=== PATIENT | female | born 1965 | race Caucasian/White ===

== ENCOUNTER 2016-12-11 01:57 | Emergency (ER) | payer OTHER ==
[2016-12-11 02:46] VITALS: BP 114/84
== END 2016-12-11 02:46 | disposition home or self-care (01) ==
LOC: ED 01:57
DX: I47.1 Supraventricular tachycardia (principal)

== ENCOUNTER 2017-02-20 19:26 | Emergency (ER) | payer OTHER ==
[~2017-02-20] VITALS: Ht 177.8 cm; Wt 88.9 kg
[2017-02-20 19:31] VITALS: Ht 177.8 cm; Wt 88.9 kg
[2017-02-20 20:34] LABS: BASOPHIL % 0.3 % (0-2); CALCIUM 8.6 mg/dL (8.5-10.1); CARBON DIOXIDE 23.4 mmol/L (21-32); CHLORIDE SERUM 105 mmol/L (98-107); CREATININE SERUM 0.8 mg/dL (0.6-1.0); GFR1 > 60 mL/min; GLUCOSE SERUM 125 mg/dL (74-106); PLATELET COUNT 203 x10^3mcL (130-400); RED CELL DISTRIBUTION WIDTH 12.6 % (11.5-14.5); SODIUM SERUM 140 mmol/L (136-145)
[2017-02-20 20:38] LABS: ALBUMIN 3.4 g/dL (3.4-5.0); ALKALINE PHOSPHATASE 57 U/L (46-116); ALT/SGPT 46 U/L (14-59); AST/SGOT 53 U/L (15-37); BILIRUBIN TOTAL 0.16 mg/dL (0.20-1.00); MAGNESIUM 1.6 mg/dL (1.8-2.4); TOTAL PROTEIN, SERUM 7.2 g/dL (6.4-8.2)
[2017-02-20 20:48] LABS: T3 TOTAL 1.2 ng/mL
[2017-02-20 21:07] LABS: FREE T4 0.9 ng/dL (0.76-1.46); FREE THYROXINE INDEX 3.1 ug/dL (1.4-4.5); T4(THYROXINE) 8.8 ug/dL (4.7-13.3)
[2017-02-20 21:22] LABS: AMPHETAMINE QUAL UR NONE DETECTED (NEG <=1000)
[2017-02-20 22:08] VITALS: BP 149/55
== END 2017-02-20 22:08 | disposition home or self-care (01) ==
LOC: ED 19:26
PROVIDERS: Emergency Medicine
DX: I47.1 Supraventricular tachycardia (principal)
CPT/HCPCS: 83880; 84439; J0153; J3475

== ENCOUNTER 2017-03-25 16:42 | Emergency (ER) | payer OTHER ==
[~2017-03-25] VITALS: Ht 177.8 cm; Wt 88.5 kg
[2017-03-25 16:57] VITALS: Ht 177.8 cm; Wt 88.5 kg
[2017-03-25 17:37] LABS: BASOPHIL % 0.6 % (0-2); PLATELET COUNT 224 x10^3mcL (130-400); RED CELL DISTRIBUTION WIDTH 12.7 % (11.5-14.5)
[2017-03-25 17:47] LABS: CALCIUM 8.9 mg/dL (8.5-10.1); CARBON DIOXIDE 20.5 mmol/L (21-32); CHLORIDE SERUM 101 mmol/L (98-107); CREATININE SERUM 0.9 mg/dL (0.6-1.0); GFR1 > 60 mL/min; GLUCOSE SERUM 171 mg/dL (74-106); POTASSIUM SERUM 3.8 mmol/L (3.5-5.1); SODIUM SERUM 137 mmol/L (136-145)
[2017-03-25 18:09] LABS: ALBUMIN 3.6 g/dL (3.4-5.0); ALKALINE PHOSPHATASE 77 U/L (46-116); ALT/SGPT 39 U/L (14-59); AST/SGOT 32 U/L (15-37); BILIRUBIN TOTAL 0.27 mg/dL (0.20-1.00); CHOLESTEROL 265 mg/dL (<200); HDL CHOLESTEROL 64 mg/dL (40-60); TOTAL PROTEIN, SERUM 7.5 g/dL (6.4-8.2); URIC ACID 5.4 mg/dL (2.6-6.0)
[2017-03-25 18:55] VITALS: BP 122/82
== END 2017-03-25 18:55 | disposition home or self-care (01) ==
LOC: ED 16:42
PROVIDERS: Emergency Medicine
DX: I47.1 Supraventricular tachycardia (principal)
CPT/HCPCS: 83880; J0153; J7030; Q0092

== ENCOUNTER 2017-05-24 23:34 | Emergency (ER) | payer OTHER ==
[~2017-05-24] VITALS: Ht 177.8 cm; Wt 88.0 kg
[2017-05-24 23:41] VITALS: Ht 177.8 cm; Wt 88.0 kg
[2017-05-25 00:19] LABS: CARBON DIOXIDE 21.8 mmol/L (21-32); CHLORIDE SERUM 101 mmol/L (98-107); CREATININE SERUM 0.7 mg/dL (0.6-1.0); GFR1 > 60 mL/min; GLUCOSE SERUM 108 mg/dL (74-106); MAGNESIUM 1.6 mg/dL (1.8-2.4); SODIUM SERUM 138 mmol/L (136-145)
[2017-05-25 00:20] LABS: POTASSIUM SERUM 2.9 mmol/L (3.5-5.1)
[2017-05-25 00:58] VITALS: BP 117/72
== END 2017-05-25 00:58 | disposition home or self-care (01) ==
LOC: ED 23:34
PROVIDERS: Emergency Medicine
DX: I47.1 Supraventricular tachycardia (principal); E87.6 Hypokalemia; E83.42 Hypomagnesemia
CPT/HCPCS: J0153; J3480; J7030; J7040

== ENCOUNTER 2017-07-09 15:16 | Emergency (ER) | payer OTHER ==
[~2017-07-09] VITALS: Ht 177.8 cm; Wt 89.3 kg
[2017-07-09 15:22] VITALS: Ht 177.8 cm; Wt 89.3 kg
[2017-07-09 16:30] LABS: BASOPHIL % 0.3 % (0-2); PLATELET COUNT 192 x10^3mcL (130-400); RED CELL DISTRIBUTION WIDTH 12.7 % (11.5-14.5)
[2017-07-09 16:46] LABS: CALCIUM 8.2 mg/dL (8.5-10.1); CARBON DIOXIDE 19.9 mmol/L (21-32); CHLORIDE SERUM 103 mmol/L (98-107); CREATININE SERUM 0.9 mg/dL (0.6-1.0); GFR1 > 60 mL/min; GLUCOSE SERUM 133 mg/dL (74-106); POTASSIUM SERUM 3.3 mmol/L (3.5-5.1); SODIUM SERUM 139 mmol/L (136-145)
[2017-07-09 16:50] LABS: ALKALINE PHOSPHATASE 59 U/L (46-116); ALT/SGPT 37 U/L (14-59); AST/SGOT 31 U/L (15-37); BILIRUBIN TOTAL 0.46 mg/dL (0.20-1.00); MAGNESIUM 1.5 mg/dL (1.8-2.4); TOTAL PROTEIN, SERUM 6.7 g/dL (6.4-8.2)
[2017-07-09 16:51] LABS: ALBUMIN 3.3 g/dL (3.4-5.0)
[2017-07-09 16:58] LABS: T3 TOTAL 1.03 ng/mL
[2017-07-09 17:04] LABS: AMPHETAMINE QUAL UR NONE DETECTED (NEG <=1000)
[2017-07-09 17:10] VITALS: BP 112/84
[2017-07-09 17:21] LABS: FREE T4 0.89 ng/dL (0.76-1.46); FREE THYROXINE INDEX 2.5 ug/dL (1.4-4.5); T4(THYROXINE) 7.8 ug/dL (4.7-13.3)
== END 2017-07-09 17:42 | disposition left against medical advice (07) ==
LOC: ED 15:16
PROVIDERS: Emergency Medicine
DX: R00.2 Palpitations (principal); E87.6 Hypokalemia; E83.42 Hypomagnesemia; Z86.79 Personal history of other diseases of the circulatory system
CPT/HCPCS: 83880; 84439; J0153; Q0092

== ENCOUNTER 2017-09-12 03:37 | Emergency (ER) | payer OTHER ==
[2017-09-12 04:26] LABS: CALCIUM 7.7 mg/dL (8.5-10.1); CARBON DIOXIDE 22.4 mmol/L (21-32); CHLORIDE SERUM 103 mmol/L (98-107); GFR1 > 60 mL/min; GLUCOSE SERUM 157 mg/dL (74-106); POTASSIUM SERUM 3.8 mmol/L (3.5-5.1); SODIUM SERUM 137 mmol/L (136-145)
[2017-09-12 04:29] LABS: MAGNESIUM 1.6 mg/dL (1.8-2.4); PHOSPHOROUS 3.2 mg/dL (2.5-4.9)
[2017-09-12 05:35] VITALS: BP 117/53
== END 2017-09-12 05:35 | disposition home or self-care (01) ==
LOC: ED 03:37
PROVIDERS: Emergency Medicine
DX: I47.1 Supraventricular tachycardia (principal)
CPT/HCPCS: J0153; J7030

== ENCOUNTER 2017-12-21 15:58 | Emergency (ER) | payer OTHER ==
[~2017-12-21] VITALS: Ht 177.8 cm; Wt 89.8 kg
[2017-12-21 16:04] VITALS: Ht 177.8 cm; Wt 89.8 kg
[2017-12-21 17:18] LABS: CALCIUM 9.1 mg/dL (8.5-10.1); CARBON DIOXIDE 20.9 mmol/L (21-32); CHLORIDE SERUM 100 mmol/L (98-107); CREATININE SERUM 0.9 mg/dL (0.6-1.0); GFR1 > 60 mL/min; GLUCOSE SERUM 128 mg/dL (74-106); POTASSIUM SERUM 3.4 mmol/L (3.5-5.1); SODIUM SERUM 134 mmol/L (136-145)
[2017-12-21 17:23] LABS: ALBUMIN 3.8 g/dL (3.4-5.0); ALKALINE PHOSPHATASE 68 U/L (46-116); ALT/SGPT 42 U/L (14-59); AST/SGOT 29 U/L (15-37); BILIRUBIN TOTAL 0.42 mg/dL (0.20-1.00); MAGNESIUM 1.6 mg/dL (1.8-2.4); TOTAL PROTEIN, SERUM 7.6 g/dL (6.4-8.2)
[2017-12-21 17:59] VITALS: BP 116/60
== END 2017-12-21 17:59 | disposition home or self-care (01) ==
LOC: ED 15:58
PROVIDERS: Emergency Medicine
DX: I47.1 Supraventricular tachycardia (principal); E87.6 Hypokalemia; E83.42 Hypomagnesemia
CPT/HCPCS: J0153; J7030